=== PATIENT | female | born 1985 | race Caucasian/White ===

== ENCOUNTER 2016-10-19 13:02 | Emergency (ER) | payer MEDICAID, MEDICARE ==
[2016-10-19 13:22] VITALS: BP 105/73
--- NOTE | 2016-10-19 13:33 | UC ---
Dental HPI - HPI Summary HPI Summary: complaint of dental pain that started 2-3 days ago bottom lower right jaw- getting more swollen constanat c=aching pain worse with chewing and cold water bad taste in her mouth sometimes took some ibuprofen without relief today denies fever or chills, headaches waiting for approval to have dentral procedure- [facility] - History of Current Complaint Chief Complaint: UCDentalProblem Stated Complaint: TOOTH COMPLAINT Time Seen by Provider: 10/19/16 13:27 Hx Obtained From: Patient Hx Last Menstrual Period: 09/21/16 Aggravating: Cold, Chewing Alleviating: Nothing Related History: Previous Dental Care on Same Tooth - Allergies/Home Medications Allergies/Adverse Reactions: Allergies Allergy/AdvReac Type Severity Reaction Status Date / Time Hydrocodone [From Vicodin] Allergy Intermediate Shortness Verified 10/19/16 13: 12 of Breath Penicillins Allergy Intermediate Rash Verified 10/19/16 13:12 Amoxicillin Allergy Rash Verified 10/19/16 13:12 Home Medications: Home Medications Gabapentin CAP(*) [Neurontin 100 mg CAP(*)] 100 mg PO TID 10/19/16 [History Confirmed 10/19/16] Ibuprofen [Ibuprofen 200 MG] 1,000 mg PO PRN 10/19/16 [History] Venlafaxine ER (NF) [Effexor ER (NF)] 75 mg PO DAILY 10/19/16 [History Confirmed 10/19/16] PMH/Surg Hx/FS Hx/Imm Hx Previously Healthy: Yes Endocrine History Of: Denies: Diabetes, Thyroid Disease Cardiovascular History Of: Denies: Cardiac Disorders, Hypertension, Pacemaker/ICD Respiratory History Of: Denies: COPD, Asthma GI/ History Of: Denies: Gastroesophageal Reflux, Ulcer, Renal Disease Neurological History Of: Denies: CVA, Dementia, Seizures Psychological History Of: Reports: Anxiety Other History Of: Negative For: Anticoagulant Therapy - Surgical History Surgical History: Yes Surgery Procedure, Year, and Place: LAMINECTOMY L5-S1 - 2009 (PREV 2 OTHER LAMINECTOMIES TO SAME AREA). TUBAL LIGATON - 2007. LEFT EARDRUM - Family History Known Family History: Negative: Cardiac Disease, Hypertension, Diabetes - Social History Occupation: Unemployed Lives: With Family Alcohol Use: None Substance Use Type: None Smoking Status (MU): Current Every Day Smoker Type: Cigarettes Amount Used/How Often: 1/2 pack per day Have You Smoked in the Last Year: Yes Household Exposure Type: Cigarettes - Immunization History Most Recent Influenza Vaccination: not utd Most Recent Tetanus Shot: 04/18/16 Most Recent Pneumonia Vaccination: none Review of Systems Constitutional: Negative Skin: Negative Eyes: Negative ENT: Dental Pain Respiratory: Negative Cardiovascular: Negative Gastrointestinal: Negative Genitourinary: Negative Motor: Negative Neurovascular: Negative Musculoskeletal: Negative Neurological: Negative Psychological: Negative All Other Systems Reviewed And Are Negative: Yes Physical Exam Triage Information Reviewed: Yes Appearance: No Pain Distress, Well-Nourished, Obese Vital Signs: Initial Vital Signs Temp 98.5 F 10/19/16 13:16 Pulse 103 10/19/16 13:16 Resp 16 10/19/16 13:16 BP 105/73 10/19/16 13:16 Pulse Ox 97 10/19/16 13:16 Vital Signs Reviewed: Yes Eyes: Positive: Conjunctiva Clear ENT: Positive: Pharynx normal, TMs normal Dental: Positive: Gross Decay/Caries @ - throughout remaining teeth, Abscess @ - 27 Neck: Positive: No Lymphadenopathy Respiratory: Positive: Lungs clear, Normal breath sounds, No respiratory distress Cardiovascular: Positive: No Murmur, Pulses Normal, Tachycardia Abdomen Description: Positive: Nontender, Soft Bowel Sounds: Positive: Present Musculoskeletal: Positive: No Edema Neurological: Positive: Alert Psychological Exam: Normal Skin Exam: Normal Dental Complaint Course/Dx - Course Course Of Treatment: exam completed. will treat dental abscess with clindamycin and percocet for several days until infection is controlled than change to ibuprofen or tylenol. ISTOP report shows tramadol use through PCP in 08/24/17 - Differential Dx/Diagnosis Differential Diagnosis/Dx: Dental Abscess, Dental Caries Provider Diagnoses: dental caries, dental abscess Discharge - Discharge Plan Condition: Stable Disposition: HOME Prescriptions: Clindamycin Cap(NF) [Cleocin 300 mg Cap(NF)] 300 mg PO TID #30 cap oxyCODONE/Acetamin 5/325 MG* [Percocet 5/325 TAB*] 1 tab PO Q4H PRN #12 tab MDD 6 PRN Reason: Pain (Dental) Patient Education Materials: Dental Abscess (ED) Referrals: Tao Green NP [Primary Care Provider] - Additional Instructions: Start antibiotic as directed Increase fluids and rest Take percocet for pain and then when finished change to ibuprofen or acetaminophen Keep appt with [facility]. Please review your discharge instructions. If your symptoms do not improve please call your primary care provider or return to urgent care
== END 2016-10-19 13:53 | disposition home or self-care (01) ==
LOC: UCEAST 13:02
DX: K04.7 Periapical abscess without sinus (principal); K02.9 Dental caries, unspecified; Z88.5 Allergy status to narcotic agent; Z88.0 Allergy status to penicillin; F17.210 Nicotine dependence, cigarettes, uncomplicated
CPT/HCPCS: 99212; G0463

== ENCOUNTER 2016-11-30 15:49 | Emergency (ER) | payer MEDICARE ==
[2016-11-30] MEDS ORDERED: Dexamethasone IV* 4 MG/ML 5 ML VIAL (20 MG) IVPB ONE (16:14)
[2016-11-30] MEDS ORDERED: oxyCODONE/Acetamin 5/325 MG* TAB PO ONE (16:14)
[2016-11-30] MEDS ORDERED: Orphenadrine Citrate IV* 30 MG/ML 2 ML VIAL IV ONE (16:14)
--- NOTE | 2016-11-30 16:32 | ED ---
Back Pain - HPI Summary HPI Summary: 31F presents with back pain since Saturday. She has a history of L5-S1 laminectomy in [place] 5 years ago. She states the pain is the same pain she had before her surgery. She states she has pain and tingling doing down her right leg to her foot. She denies any loss of bowel or bladder or saddle paresthesia. She denies any fever. She denies any trauma to the area. - History of Current Complaint Chief Complaint: EDBackInjuryPain Stated Complaint: LOWER BACK AND LEG PAIN Time Seen by Provider: 11/30/16 16:06 Hx Last Menstrual Period: 09/21/16 Pain Intensity: 8 - Allergies/Home Medications Allergies/Adverse Reactions: Allergies Allergy/AdvReac Type Severity Reaction Status Date / Time Hydrocodone [From Vicodin] Allergy Intermediate Shortness Verified 11/30/16 15: 55 of Breath Penicillins Allergy Intermediate Rash Verified 11/30/16 15:55 Amoxicillin Allergy Rash Verified 11/30/16 15:55 PMH/Surg Hx/FS Hx/Imm Hx Endocrine/Hematology History: Denies: Hx Anticoagulant Therapy, Hx Diabetes, Hx Thyroid Disease Cardiovascular History: Denies: Hx Hypertension, Hx Pacemaker/ICD Respiratory History: Reports: Other Respiratory Problems/Disorders - rhinitis Denies: Hx Asthma, Hx Chronic Obstructive Pulmonary Disease (COPD) GI History: Denies: Hx Ulcer History: Denies: Hx Dialysis, Hx Renal Disease Musculoskeletal History: Reports: Hx Back Problems Denies: Hx Rheumatoid Arthritis, Hx Osteoporosis Sensory History: Denies: Hx Hearing Aid Neurological History: Denies: Hx Dementia, Hx Seizures Psychiatric History: Reports: Hx Anxiety Denies: Hx Panic Disorder, Hx Substance Abuse - Surgical History Surgery Procedure, Year, and Place: LAMINECTOMY L5-S1 - 2009 (PREV 2 OTHER LAMINECTOMIES TO SAME AREA). TUBAL LIGATON - 2007. LEFT EARDRUM Infectious Disease History: No Infectious Disease History: Denies: Hx Clostridium Difficile, Hx Hepatitis, Hx Human Immunodeficiency Virus (HIV), Hx of Known/Suspected MRSA, Hx Shingles, Hx Tuberculosis, Hx Known/ Suspected VRE, Hx Known/Suspected VRSA, History Other Infectious Disease, Traveled Outside the [place] in Last 30 Days - Family History Known Family History: Negative: Cardiac Disease, Hypertension, Diabetes - Social History Alcohol Use: None Substance Use Type: Reports: None Hx Tobacco Use: Yes Smoking Status (MU): Current Every Day Smoker Type: Cigarettes Amount Used/How Often: 1/2 pack per day Have You Smoked in the Last Year: Yes Review of Systems Negative: Fever Negative: Chest Pain Negative: Shortness Of Breath Positive: Myalgia - back pain All Other Systems Reviewed And Are Negative: Yes Physical Exam Triage Information Reviewed: Yes Vital Signs On Initial Exam: Initial Vitals Temp Pulse Resp BP Pulse Ox 98.1 F 126 18 115/78 100 11/30/16 15:56 11/30/16 15:56 11/30/16 15:56 11/30/16 15:56 11/30/16 15:56 Vital Signs Reviewed: Yes Appearance: Positive: Well-Appearing Skin: Positive: Warm, Dry Head/Face: Positive: Normal Head/Face Inspection Eyes: Positive: Normal, Conjunctiva Clear ENT: Positive: Normal ENT inspection, Pharynx normal, TMs normal Respiratory/Lung Sounds: Positive: Clear to Auscultation, Breath Sounds Present Cardiovascular: Positive: Normal, RRR Musculoskeletal: Positive: Limited @ - back due to pain, Other - pos SRL right side, tenderness on either side of lower back with tenderness greatest on right side Diagnostics - Vital Signs Vital Signs Temp Pulse Resp BP Pulse Ox 11/30/16 15:56 98.1 F 126 18 115/78 100 - Laboratory Lab Statement: Any lab studies that have been ordered have been reviewed, and results considered in the medical decision making process. - CT back CT Interpretation: Positive (See Comments) - IMPRESSION: 1. Negative for fracture 2. No gross change in the disc extrusion with resulting moderate acquired central canal stenosis at L4-L5 or mild to moderate bilateral L4-L5 foraminal stenosis. 3. Post anterior column L5-S1 fusion. Moderately severe RIGHT and moderate LEFT L5-S1 foraminal stenosis with suggestion of worsening on the RIGHT compared with the January 19, 2015 MRI. 4. Partially visualized uterus appears enlarged. Correlate with clinical assessment. CT Interpretation Completed By: Radiologist Re-Evaluation - Re-Evaluation First Eval Re-Evaluation Time: 17:08 Change: Unchanged Comment: still in pain, will give morphine Second Eval Re-Evaluation Time: 17:48 Change: Improved Comment: feeling better, wants to go home Back Pain Course/Dx - Course Course Of Treatment: 31F presents with back pain since danielle. denies any trauma. states this pain is the same pain had before had surgery 5 years ago and has L5-S1 removed. states pain travels down right leg and pain is greatest on right hand side. states that was using heat packs and that it seemed to help a little but the pain is becoming unmanagable at home. on exam tenderness to right side of back and pos SLR on right side. CT shows worsening foraminal stenosis on right which may be causing pain. able to achieve pain control with decadron, noriflex, percocet, and morphine. will have continue ibuprofen, robaxin, prednisone at home and gave percocet for break through pain. told to increase fiber so constipation does not put pressure on area. told to follow up with primary to potential do PT, told to potential follow up with neurosurgery. patient understands and agrees with plan - Diagnoses Differential Diagnosis/HQI/PQRI: Positive: Herniated Disc, Strain, Sprain Provider Diagnoses: Back pain Discharge - Discharge Plan Condition: Good Disposition: HOME Prescriptions: Methocarbamol TAB* [Robaxin TAB*] 750 mg PO TID PRN #9 tab PRN Reason: Pain Methylprednisolone [Medrol Dosepak 4 MG*] 4 mg PO .SEE JUAN M INSTRUCTION #1 packet oxyCODONE/Acetamin 5/325 MG* [Percocet 5/325 TAB*] 1 tab PO Q6H PRN #16 tab MDD 4 PRN Reason: Pain Patient Education Materials: Back Pain (ED) Referrals: Levy Madden MD [Medical Doctor] - Tao Green NP [Primary Care Provider] - Additional Instructions: Follow directions on package for Medrol pack Take muscle relaxers three times a day for 3 days Use ibuprofen or Tylenol for pain every 6 hours, use narcotic for break through pain Increase fiber, use OTC laxatives such as miralax ice/heat area, move as much as possible Follow up with primary within 5 days Follow up with neurosurgery Return to ED if unable to ambulate or develop any new or worsening symptoms
--- NOTE | 2016-11-30 16:57 | RAD ---
Indication: Pain radiating to the RIGHT leg. Post L5-S1 laminectomy in 2010 and more remote back surgery. Comparison: January 19, 2015 MRI. Technique: Noncontrast CT lumbar sacral spine. Report: The partially visualized uterus appears enlarged. Postsurgical change of L5-S1 anterior hardware and bone graft fusion and bilateral decompressive laminectomy. No suggestion of loosening of the L5-S1 anterior fusion hardware. Normal vertebral alignment. Negative for vertebral body fracture or spondylolysis. At L4-L5 there is mild to moderate disc space narrowing. Broad dorsal disc extrusion with mild caudal extension most prominent in the posterior central region is grossly unchanged from the 2015 MRI. Resulting moderate acquired central canal stenosis. Degenerative spondylosis and facet ligamentous hypertrophic arthropathy results in mild to moderate bilateral foraminal stenosis without significant change. At L5-S1 there is no significant acquired central canal or lateral recess stenosis. Vertebral endplate osteophytosis and posterior element hypertrophic arthropathy results in moderately severe RIGHT and moderate LEFT foraminal stenosis with suggestion of worsening on the RIGHT compared with the prior exam. IMPRESSION: 1. Negative for fracture 2. No gross change in the disc extrusion with resulting moderate acquired central canal stenosis at L4-L5 or mild to moderate bilateral L4-L5 foraminal stenosis. 3. Post anterior column L5-S1 fusion. Moderately severe RIGHT and moderate LEFT L5-S1 foraminal stenosis with suggestion of worsening on the RIGHT compared with the January 19, 2015 MRI. 4. Partially visualized uterus appears enlarged. Correlate with clinical assessment.
[2016-11-30] MEDS ORDERED: Morphine INJ* 4 MG/ML 1 ML SYRINGE IV ONE (17:08)
[2016-11-30] MEDS ORDERED: Ondansetron INJ* 2 MG/ML VIAL IV ONE (17:08)
[2016-11-30 17:45] VITALS: BP 98/61
== END 2016-11-30 17:54 | disposition home or self-care (01) ==
LOC: ED 15:49
DX: M54.9 Dorsalgia, unspecified (principal); F17.210 Nicotine dependence, cigarettes, uncomplicated
CPT/HCPCS: 72131; 99283; A9270-GY; J2270; J2360; J2405

== ENCOUNTER 2017-01-20 22:47 | Emergency (ER) | payer MEDICARE, MEDICAID ==
--- NOTE | 2017-01-21 00:39 | ED ---
- HPI Summary HPI Summary: 31 female presents with complaints of lower abdominal pressure and heavy vaginal bleeding that began today 01/20/17. Patient states she is approximately 19 weeks . She has been experiencing vaginal bleeding for the past month however it has not been this heavy. Has spoke with Dr Hansen, a month ago while in ED, who told her to return if bleeding became worse. Also has appointment in [place] for possible terminating this Saturday due to the complications she has been having. States she passed two large size clots that she brought into ED with her. Wanted to be seen to make sure she wasn't losing too much blood. Admits to some lower abdominal discomfort she describes to be like tadeo gold except less frequent. Has taken ibuprofen for the pain. Patient also takes oxycodone daily for chronic back pain and also took that today. No other significant PMHx. Denies urinary and genitalia symptoms. Denies fever/chills, nausea, vomiting and constipation. HX of ectopic . - History of Current Complaint Chief Complaint: EDVaginalBleeding Stated Complaint: VAG BLEED/19 WKS Time Seen by Provider: 01/21/17 00:06 Hx Obtained From: Patient Chief Complaint: Concern for Demise, Vaginal Bleeding Onset/Duration: Started Weeks Ago - has been ongoing for past month, increased tonight, Worse Since Timing: Constant Severity: Moderate Current Severity: Mild Pain Intensity: 6 Location of Pain: Suprapubic Character: Cramping, Dull, Other: - pressure Aggravating Factors: Nothing Alleviating Factors: Nothing Associated Signs and Symptoms: Positive: Back Pain, Vaginal Bleeding or Discharge - Assessment Hx Now: Yes Hx : 4 Hx Para: 2 SAB: 1 IEA: 0 History of Ectopic : Yes Vaginal Bleeding Amount: Large - has since slowed down - Risk Factors Ectopic Risk Factor: Prior Ectopic - per patient, Tubal Ligation - Additional Pertinent History Maternal Blood Type and Rh: O Positive - Allergies/Home Medications Allergies/Adverse Reactions: Allergies Allergy/AdvReac Type Severity Reaction Status Date / Time Hydrocodone [From Vicodin] Allergy Intermediate Shortness Verified 01/21/17 00: 03 of Breath Penicillins Allergy Intermediate Rash Verified 01/21/17 00:03 Amoxicillin Allergy Rash Verified 01/21/17 00:03 PMH/Surg Hx/FS Hx/Imm Hx Endocrine/Hematology History: Denies: Hx Anticoagulant Therapy, Hx Diabetes, Hx Thyroid Disease Cardiovascular History: Denies: Hx Hypertension, Hx Pacemaker/ICD Respiratory History: Reports: Other Respiratory Problems/Disorders - rhinitis Denies: Hx Asthma, Hx Chronic Obstructive Pulmonary Disease (COPD) GI History: Denies: Hx Ulcer History: Denies: Hx Dialysis, Hx Renal Disease Musculoskeletal History: Reports: Hx Back Problems Denies: Hx Rheumatoid Arthritis, Hx Osteoporosis Sensory History: Denies: Hx Hearing Aid Neurological History: Denies: Hx Dementia, Hx Seizures Psychiatric History: Reports: Hx Anxiety Denies: Hx Panic Disorder, Hx Substance Abuse - Surgical History Surgery Procedure, Year, and Place: LAMINECTOMY L5-S1 - 2009 (PREV 2 OTHER LAMINECTOMIES TO SAME AREA). TUBAL LIGATON - 2007. LEFT EARDRUM - Immunization History Immunizations Up to Date: Yes Infectious Disease History: No Infectious Disease History: Denies: Hx Clostridium Difficile, Hx Hepatitis, Hx Human Immunodeficiency Virus (HIV), Hx of Known/Suspected MRSA, Hx Shingles, Hx Tuberculosis, Hx Known/ Suspected VRE, Hx Known/Suspected VRSA, History Other Infectious Disease, Traveled Outside the [place] in Last 30 Days - Family History Known Family History: Negative: Cardiac Disease, Hypertension, Diabetes - Social History Alcohol Use: None Substance Use Type: Reports: None Hx Tobacco Use: Yes Smoking Status (MU): Current Every Day Smoker Type: Cigarettes Amount Used/How Often: 1/2 pack per day Have You Smoked in the Last Year: Yes Review of Systems Constitutional: Negative Cardiovascular: Negative Respiratory: Negative Positive: Abdominal Pain Positive: other - vaginal bleeding Musculoskeletal: Negative Skin: Negative Neurological: Negative All Other Systems Reviewed And Are Negative: Yes Physical Exam - Physical Exam Triage Information Reviewed: Yes Vital Signs On Initial Exam: Temp: 97.9 HR: 112 BP: 117/76 Resp:20 tachycardia noted Vital Signs Reviewed: Yes Appearance: Positive: Well-Appearing, No Pain Distress, Well-Nourished Skin: Positive: Warm, Skin Color Reflects Adequate Perfusion, Dry, Pale. Negative: Cyanosis @ Head/Face: Positive: Normal Head/Face Inspection Eyes: Positive: Normal, Conjunctiva Clear ENT: Positive: Normal ENT inspection, Hearing grossly normal Neck: Positive: Supple, Nontender, No Lymphadenopathy Respiratory/Lung Sounds: Positive: Clear to Auscultation, Breath Sounds Present Cardiovascular: Positive: Normal, RRR, Pulses are Symmetrical in both Upper and Lower Extremities Abdomen Description: Positive: No Organomegaly, Soft, Other: - minimal tenderness on palpation of suprapubic abdomen. Negative: Bruit, CVA Tenderness (R), CVA Tenderness (L), Distended, Guarding, Peritoneal Signs, Pulsatile Mass Bowel Sounds: Positive: Present Musculoskeletal: Positive: Normal, Strength/ROM Intact Neurological: Positive: Normal, Sensory/Motor Intact, Alert, Oriented to Person Place, Time Psychiatric: Positive: Normal Diagnostics - Vital Signs Vital Signs Temp Pulse Resp BP Pulse Ox 01/21/17 00:02 99.7 F 106 16 111/67 96 01/20/17 22:48 97.9 F 112 20 117/76 - Laboratory Result Diagrams: 01/21/17 00:58 01/21/17 00:58 Lab Statement: Any lab studies that have been ordered have been reviewed, and results considered in the medical decision making process. Re-Evaluation - Re-Evaluation First Eval Re-Evaluation Time: 01:30 Change: Improved Comment: bleeding has slowed, pain has decreased, discussed lab results, UTI and current plan of action. patient agrees. Course/Dx - Course Course Of Treatment: heart tones obtained- 160bpm. Labs, UA and HCG obtained. Patient given tylenol for pain and discomfort. WBC elevated, RBC decreased however compared to previous visits and all in similar range. No concern for sepsis at this time. Patient also states she has a dental abscess being treated . Patient's urine also showed UTI. Will be treated. H&H not of concern at this time. Patient instructed to eat high iron foods. Close follow up with OBGYN. Aware of worsening signs and symptoms. Viable at this time. - Differential Diagnosis/HQI/PQRI: Spontaneous , Threatened , Early , Premature Rupture of Membranes, Pre-term Labor, Vaginal Bleeding - Diagnoses Provider Diagnoses: Vaginal bleeding before 22 weeks gestation, UTI (urinary tract infection) - Provider Notifications Discussed Care Of Patient With: Dr Liz Discharge - Discharge Plan Condition: Stable Disposition: HOME Prescriptions: Nitrofurantoin Macrocrystals* [Macrodantin*] 100 mg PO BID #13 cap Patient Education Materials: Urinary Tract Infection in Women (ED) Referrals: Non Staff,Doctor [Primary Care Provider] - Bc Hansen MD [Medical Doctor] - Additional Instructions: Take prescribed medication as directed until entire dose is finished, even if symptoms improve for UTI. Make an appointment with Dr Hansen's office to be seen tomorrow for close follow up. Warm compresses on lower abdomen may help with discomfort. If you develop worsening symptoms of increased bleeding, increased pain, fever/ chills, dizziness and lightheadedness please return to ED. Tylenol for pain and discomfort. Follow up with PCP.
[2017-01-21] MEDS ORDERED: Acetaminophen TAB* 325 MG PO ONE (00:41)
[2017-01-21 01:14] LABS: Urine Bacteria 1+ (Absent); Urine Bilirubin Negative (Negative); Urine Glucose Negative (Negative); Urine Nitrite Negative (Negative)
[2017-01-21 01:21] LABS: Albumin 3.4 g/dL (3.2-5.2); BUN/Creatinine Ratio 17.5 (8-20); Calcium 8.7 mg/dL (8.6-10.3); EGFR African American 236.4 (>60); EGFR Non-African American 183.8 (>60); Globulin 2.8 g/dL (2-4); Potassium 3.4 mmol/L (3.5-5.0); Total Bilirubin 0.3 mg/dL (0.2-1.0); Total Protein 6.2 g/dL (6.4-8.9)
[2017-01-21 01:36] LABS: Hematocrit 32 % (35-47); Hemoglobin 10.5 g/dl (12.0-16.0); Mean Corpuscular HGB Conc 33 g/dl (31-36); Mean Corpuscular Hemoglobin 29 pg (27-31); Mean Corpuscular Volume 87 fL (80-97); Mean Platelet Volume 9 um3 (7.4-10.4); Red Blood Count 3.62 10^6/ul (4.0-5.4); Red Cell Distribution Width 14 % (10.5-15); White Blood Count 20.5 10^3/ul (3.5-10.8)
[2017-01-21] MEDS ORDERED: Nitrofurantoin Macrocrystals* 100 MG CAP PO ONE (01:58)
[2017-01-21 02:16] VITALS: BP 100/67
== END 2017-01-21 02:15 | disposition home or self-care (01) ==
LOC: ED 22:47
DX: O46.92 Antepartum hemorrhage, unspecified, second trimester (principal); R10.30 Lower abdominal pain, unspecified; Z3A.22 22 weeks gestation of pregnancy; N39.0 Urinary tract infection, site not specified; M54.9 Dorsalgia, unspecified
CPT/HCPCS: 36415; 80053; 81003; 81015; 84702; 85025; 87086; 99282; A9270-GY

== ENCOUNTER 2017-03-24 09:25 | Emergency (ER) | payer MEDICARE, MEDICAID ==
[2017-03-24 10:52] VITALS: BP 101/69
--- NOTE | 2017-03-24 11:58 | UC ---
UC Dental HPI - History of Current Complaint Chief Complaint: UCDentalProblem Stated Complaint: DENTAL COMPLAINT Time Seen by Provider: 03/24/17 11:30 Hx Obtained From: Patient Hx Last Menstrual Period: 03/09/17 ?: No Onset/Duration: Gradual Onset - states had 12 teeth pulled 4 days a go and was put on clindamycin. she was feeling well for first 2 days but now thinks the clindamycin is not working, has bad taste in her mouth. - Allergies/Home Medications Allergies/Adverse Reactions: Allergies Allergy/AdvReac Type Severity Reaction Status Date / Time Hydrocodone [From Vicodin] Allergy Intermediate Shortness Verified 01/21/17 00: 03 of Breath Penicillins Allergy Intermediate Rash Verified 01/21/17 00:03 Amoxicillin Allergy Rash Verified 01/21/17 00:03 PMH/Surg Hx/FS Hx/Imm Hx Previously Healthy: Yes Psychological History: Depression Other History Of: Negative For: Anticoagulant Therapy - Surgical History Surgical History: Yes Surgery Procedure, Year, and Place: LAMINECTOMY L5-S1 - 2009 (PREV 2 OTHER LAMINECTOMIES TO SAME AREA). TUBAL LIGATON - 2007. LEFT EARDRUM - Family History Known Family History: Negative: Cardiac Disease, Hypertension, Diabetes - Social History Occupation: Unemployed Lives: With Family Alcohol Use: None Substance Use Type: None Smoking Status (MU): Light Every Day Tobacco Smoker Type: Cigarettes Amount Used/How Often: 1/2 pack per day Have You Smoked in the Last Year: Yes Household Exposure Type: Cigarettes - Immunization History Most Recent Influenza Vaccination: not utd Most Recent Tetanus Shot: 04/18/16 Most Recent Pneumonia Vaccination: none Review of Systems Constitutional: Negative ENT: Dental Pain Respiratory: Negative Cardiovascular: Negative All Other Systems Reviewed And Are Negative: Yes Physical Exam Triage Information Reviewed: Yes Appearance: Well-Appearing, No Pain Distress, Well-Nourished Vital Signs: Initial Vital Signs Temp 99.0 F 03/24/17 10:49 Pulse 91 03/24/17 10:49 Resp 18 03/24/17 10:49 BP 101/69 03/24/17 10:49 Pulse Ox 100 03/24/17 10:49 Vital Signs Reviewed: Yes ENT: Positive: Other: - multiple tooth extraction sites, no clear evidence infection, white granulation tissue eveident, no d/c, redness or facial swelling Neck: Positive: No Lymphadenopathy Respiratory Exam: Normal Cardiovascular Exam: Normal Psychological Exam: Normal Skin Exam: Normal Dental Complaint Course/Dx - Course Course Of Treatment: iStop Reference # [id number] - Differential Dx/Diagnosis Differential Diagnosis/Dx: Dental Abscess, Post Extraction Pain Provider Diagnoses: post extraction pain Discharge - Discharge Plan Condition: Good Disposition: HOME Prescriptions: Cephalexin CAP* [Keflex 500 CAP*] 500 mg PO QID #40 cap Patient Education Materials: Tooth Extraction (ED) Additional Instructions: stop clindamycin and start cephalexin as prescribed continue oxycodone from home as directed fpr pain Follow-up with your dentist as planned
== END 2017-03-24 12:38 | disposition home or self-care (01) ==
LOC: UCEAST 09:25
DX: G89.18 Other acute postprocedural pain (principal); K08.89 Other specified disorders of teeth and supporting structures; Z72.0 Tobacco use
CPT/HCPCS: 99212; G0463

== ENCOUNTER 2017-04-21 14:02 | Emergency (ER) | payer MEDICARE, MEDICAID ==
[2017-04-21 14:09] VITALS: BP 104/72
--- NOTE | 2017-04-21 14:23 | UC ---
Elbow Pain - HPI Summary HPI Summary: Fell on right elbow about one hour ago - History of Current Complaint Chief Complaint: UCUpperExtremity Stated Complaint: ELBOW INJURY Time Seen by Provider: 04/21/17 14:17 Hx Obtained From: Patient Hx Last Menstrual Period: 04/21/17 ?: No Mechanism of Injury: fall Onset/Duration: Minutes, Traumatic Severity Initially: Moderate Severity Currently: Moderate Pain Intensity: 6 Pain Scale Used: 0-10 Numeric Location Of Pain: Is Discrete @ - right elbow Character: Aching Aggravating Factor(s): Movement Alleviating Factor(s): Rest, Ice - Allergies/Home Medications Allergies/Adverse Reactions: Allergies Allergy/AdvReac Type Severity Reaction Status Date / Time Hydrocodone [From Vicodin] Allergy Intermediate Shortness Verified 01/21/17 00: 03 of Breath Penicillins Allergy Intermediate Rash Verified 01/21/17 00:03 Amoxicillin Allergy Rash Verified 01/21/17 00:03 PMH/Surg Hx/FS Hx/Imm Hx Previously Healthy: No - chronic pain Other History Of: Negative For: Anticoagulant Therapy - Surgical History Surgical History: Yes Surgery Procedure, Year, and Place: LAMINECTOMY L5-S1 - 2009 (PREV 2 OTHER LAMINECTOMIES TO SAME AREA). TUBAL LIGATON - 2007. LEFT EARDRUM - Family History Known Family History: Negative: Cardiac Disease, Hypertension, Diabetes - Social History Occupation: Disabled Lives: With Family Alcohol Use: None Substance Use Type: None Smoking Status (MU): Light Every Day Tobacco Smoker Type: Cigarettes Amount Used/How Often: 1/2 pack per day Have You Smoked in the Last Year: Yes Household Exposure Type: Cigarettes Cessation Counseling: Patient Advised to Stop - Immunization History Most Recent Influenza Vaccination: not utd Most Recent Tetanus Shot: 04/18/16 Most Recent Pneumonia Vaccination: none Review of Systems Constitutional: Negative Skin: Negative Eyes: Negative ENT: Negative Respiratory: Negative Cardiovascular: Negative Gastrointestinal: Negative Genitourinary: Negative Motor: Negative Neurovascular: Negative Musculoskeletal: Arthralgia - right elbow Neurological: Negative Psychological: Negative All Other Systems Reviewed And Are Negative: Yes Physical Exam Triage Information Reviewed: Yes Appearance: Well-Appearing, No Pain Distress, Well-Nourished Vital Signs: Initial Vital Signs Temp 97.9 F 04/21/17 14:07 Pulse 108 04/21/17 14:07 Resp 18 04/21/17 14:07 BP 104/72 04/21/17 14:07 Pulse Ox 100 04/21/17 14:07 Vital Signs Reviewed: Yes Eye Exam: Normal Eyes: Positive: Conjunctiva Clear ENT Exam: Normal ENT: Positive: Normal ENT inspection, Hearing grossly normal. Negative: Nasal congestion, Nasal drainage, Trismus, Muffled/hoarse voice Dental Exam: Normal Neck exam: Normal Neck: Positive: Supple, Nontender Respiratory Exam: Normal Respiratory: Positive: Chest non-tender, No respiratory distress, No accessory muscle use Cardiovascular Exam: Normal Cardiovascular: Positive: RRR, Pulses Normal, Brisk Capillary Refill Musculoskeletal Exam: Normal Musculoskeletal: Positive: No Edema, Strength Limited @, ROM Limited @ - right elbow Neurological Exam: Normal Neurological: Positive: Alert, Muscle Tone Normal Psychological Exam: Normal Skin Exam: Normal Diagnostics - Radiology No standard instances Xray Interpretation: No Acute Changes Radiology Interpretation Completed By: Radiologist Elbow Pain Course/Dx - Course Course Of Treatment: rice, sling prn for 1-2 days, ibuprofen follow with pcp - Differential Dx/Diagnosis Differential Diagnosis/HQI/PQRI: Contusion, Fracture (Closed), Sprain, Strain Provider Diagnoses: Contusion right elbow Discharge - Discharge Plan Condition: Stable Disposition: HOME Patient Education Materials: Contusion in Adults (ED), Ibuprofen (By mouth), Swollen Joint (ED) Referrals: Grady Sierra MD [Medical Doctor] - 5 Days
--- NOTE | 2017-04-21 14:53 | RAD ---
Indication: Right elbow injury. 4 views of the right elbow demonstrates no fracture. No other bone or joint abnormality is identified. IMPRESSION: No fracture right elbow is noted.
== END 2017-04-21 15:03 | disposition home or self-care (01) ==
LOC: UCEAST 14:02
DX: S50.01XA Contusion of right elbow, initial encounter (principal); W19.XXXA Unspecified fall, initial encounter; Y93.9 Activity, unspecified; Y92.9 Unspecified place or not applicable; Z88.5 Allergy status to narcotic agent; Z88.0 Allergy status to penicillin; F17.210 Nicotine dependence, cigarettes, uncomplicated
CPT/HCPCS: 99213; G0463

== ENCOUNTER 2017-07-08 19:30 | Emergency (ER) | payer MEDICARE, MEDICAID ==
[2017-07-08] MEDS ORDERED: Morphine INJ* 4 MG/ML 1 ML CARPUJECT IM ONE (21:31)
--- NOTE | 2017-07-08 21:33 | ED ---
Back Pain - HPI Summary HPI Summary: 31F presents with acute on chronic back pain. The pain is in the same area as previous. no new injury. no saddle anaesthesia. no loss of bowel or bladder. took normal pain medication and not working. is looking for pain control. takes oxy for pain and naproxen and baclofen. no fever. - History of Current Complaint Chief Complaint: EDBackInjuryPain Stated Complaint: BACK PAIN Time Seen by Provider: 07/08/17 20:57 Hx Last Menstrual Period: 04/21/17 Pain Intensity: 9 - Allergies/Home Medications Allergies/Adverse Reactions: Allergies Allergy/AdvReac Type Severity Reaction Status Date / Time Hydrocodone [From Vicodin] Allergy Intermediate Shortness Verified 01/21/17 00: 03 of Breath Penicillins Allergy Intermediate Rash Verified 01/21/17 00:03 Amoxicillin Allergy Rash Verified 01/21/17 00:03 PMH/Surg Hx/FS Hx/Imm Hx Endocrine/Hematology History: Denies: Hx Anticoagulant Therapy, Hx Diabetes, Hx Thyroid Disease Cardiovascular History: Denies: Hx Hypertension, Hx Pacemaker/ICD Respiratory History: Reports: Other Respiratory Problems/Disorders - rhinitis Denies: Hx Asthma, Hx Chronic Obstructive Pulmonary Disease (COPD) GI History: Denies: Hx Ulcer History: Denies: Hx Dialysis, Hx Renal Disease Musculoskeletal History: Reports: Hx Back Problems Denies: Hx Rheumatoid Arthritis, Hx Osteoporosis Sensory History: Denies: Hx Hearing Aid Neurological History: Denies: Hx Dementia, Hx Seizures Psychiatric History: Reports: Hx Anxiety Denies: Hx Panic Disorder, Hx Substance Abuse - Surgical History Surgery Procedure, Year, and Place: LAMINECTOMY L5-S1 - 2009 (PREV 2 OTHER LAMINECTOMIES TO SAME AREA). TUBAL LIGATON - 2007. LEFT EARDRUM Infectious Disease History: No Infectious Disease History: Denies: Hx Clostridium Difficile, Hx Hepatitis, Hx Human Immunodeficiency Virus (HIV), Hx of Known/Suspected MRSA, Hx Shingles, Hx Tuberculosis, Hx Known/ Suspected VRE, Hx Known/Suspected VRSA, History Other Infectious Disease, Traveled Outside the [place] in Last 30 Days - Family History Known Family History: Negative: Cardiac Disease, Hypertension, Diabetes - Social History Alcohol Use: None Substance Use Type: Reports: None Hx Tobacco Use: Yes Smoking Status (MU): Light Every Day Tobacco Smoker Type: Cigarettes Amount Used/How Often: 1/2 pack per day Have You Smoked in the Last Year: Yes Review of Systems Negative: Fever Negative: Chest Pain Negative: Shortness Of Breath Positive: Myalgia - back pain All Other Systems Reviewed And Are Negative: Yes Physical Exam Triage Information Reviewed: Yes Vital Signs On Initial Exam: Initial Vitals Temp Pulse Resp BP Pulse Ox 98.4 F 112 20 112/79 98 07/08/17 19:40 07/08/17 19:40 07/08/17 19:40 07/08/17 19:40 07/08/17 19:40 Vital Signs Reviewed: Yes Appearance: Positive: Pain Distress Skin: Positive: Warm, Dry Head/Face: Positive: Normal Head/Face Inspection Eyes: Positive: Normal, Conjunctiva Clear Respiratory/Lung Sounds: Positive: Clear to Auscultation, Breath Sounds Present Cardiovascular: Positive: Normal, RRR Musculoskeletal: Positive: Limited @ - back, Other - tenderness across lower back, pos SLR right, good pulses Neurological: Positive: Reflexes Intact - patella Psychiatric: Positive: Normal Diagnostics - Vital Signs Vital Signs Temp Pulse Resp BP Pulse Ox 07/08/17 19:40 98.4 F 112 20 112/79 98 - Laboratory Lab Statement: Any lab studies that have been ordered have been reviewed, and results considered in the medical decision making process. Back Pain Course/Dx - Course Course Of Treatment: 31F presents with acute on chronic back pain. The pain is in the same area as previous. no new injury. no saddle anaesthesia. no loss of bowel or bladder. took normal pain medication and not working. is looking for pain control. takes oxy for pain and naproxen and baclofen. on exam in pain distress. tenderness lower back. pos SLR. discussed that is pain clinic patient so will give dose of morphine here and can inc normal pain medication but has to tell pain clinic such. patient understand and agrees with plan. - Diagnoses Differential Diagnosis/HQI/PQRI: Positive: Herniated Disc, Strain, Sprain Provider Diagnoses: Back pain Discharge - Discharge Plan Condition: Good Disposition: HOME Patient Education Materials: Back Pain (ED) Referrals: Orion Cosme MD [Primary Care Provider] - Additional Instructions: Can increase your dose of pain medication to every 4 hours or two tablets every 6 hours You need to inform the pain clinic that you are doing this follow up with pain clinic as scheduled Return to ED if develop any new or worsening symptoms *Morphine 4mg was given in ED*
[2017-07-08 21:50] VITALS: BP 113/74
== END 2017-07-08 21:49 | disposition home or self-care (01) ==
LOC: ED 19:30
DX: M54.9 Dorsalgia, unspecified (principal); G89.29 Other chronic pain; F17.210 Nicotine dependence, cigarettes, uncomplicated
CPT/HCPCS: 96372; 99281; J2270

== ENCOUNTER 2017-10-06 09:08 | Emergency (ER) | payer MEDICARE, MEDICAID ==
--- NOTE | 2017-10-06 11:10 | UC ---
Shoulder Pain HPI - HPI Summary HPI Summary: 31 y/o female presents to the urgent care c/o RT shoulder pain and lower back pain s/p falling on ice on Saturday10/02/2017. Pt reports she hs Hx of chronic back pain due to DDD on pain management. However after fall, the Gabapentin and Oxycodone are not alleviating her pain,. pain is sharp at times w/ movement of her RT shoulder, 8/10 and mild numbness of RT arm. Lower back pain is mild. Pt denies SOB, chest pain, saddle anesthesia, urinary or fecal incontinence, numbness or tinglin over the lower extremities, abdominal pain, N/V/D. 2017. - History of Current Complaint Chief Complaint: UCBackPain Stated Complaint: SHOULDER INJURY Time Seen by Provider: 10/06/17 11:03 Hx Last Menstrual Period: 09/29/17 ?: No Onset/Duration: Sudden Onset, Lasting Days - 4 days, Still Present, Worse Since - yesterday Timing: Constant Severity Initially: Moderate Severity Currently: Moderate Location Of Pain: Is Discrete @ - RT shoulder and lower back, Radiates To - RT arm Pain Intensity: 8 Pain Scale Used: 0-10 Numeric Character: Sharp, Spasmodic Aggravating Factor(s): Movement, Lifting, Abduction Alleviating Factor(s): Rest, Ice, OTC Meds Associated Signs And Symptoms: Positive: Numbness/Tingling. Negative: Swelling , Redness, Fever - Risk Factors Non-Orthopedic Risk Factor: Negative DVT Risk Factors: Negative Septic Arthritis Risk Factor: Negative - Allergies/Home Medications Allergies/Adverse Reactions: Allergies Allergy/AdvReac Type Severity Reaction Status Date / Time MS Hydrocodone [From Vicodin] Allergy Intermediate Shortness Verified 10/06/17 09:54 of Breath MS Penicillins [Penicillins] Allergy Intermediate Rash Verified 10/06/17 09:54 MS Amoxicillin [Amoxicillin] Allergy Rash Verified 10/06/17 09:54 PMH/Surg Hx/FS Hx/Imm Hx Previously Healthy: Yes Other Neurological History: DDD at L5-S1 Other History Of: Negative For: Anticoagulant Therapy - Surgical History Surgical History: Yes Surgery Procedure, Year, and Place: LAMINECTOMY L5-S1 - 2009 (PREV 2 OTHER LAMINECTOMIES TO SAME AREA). TUBAL LIGATON - 2007. LEFT EARDRUM - Family History Known Family History: Negative: Cardiac Disease, Hypertension, Diabetes - Social History Occupation: Employed Full-time Lives: With Family Alcohol Use: None Substance Use Type: None Smoking Status (MU): Former Smoker Type: Cigarettes Amount Used/How Often: 1/2 pack per day Have You Smoked in the Last Year: Yes Household Exposure Type: Cigarettes - Immunization History Most Recent Influenza Vaccination: not utd Most Recent Tetanus Shot: 04/18/16 Most Recent Pneumonia Vaccination: none Review of Systems Constitutional: Negative Skin: Negative Eyes: Negative ENT: Negative Respiratory: Negative Cardiovascular: Negative Gastrointestinal: Negative Genitourinary: Negative Motor: Negative Neurovascular: Negative Musculoskeletal: Decreased ROM - RT shoulder s/p fall, Other: - RT lower shoulder pain and lower back pain s/p fall Neurological: Negative Psychological: Negative Is Patient Immunocompromised?: No All Other Systems Reviewed And Are Negative: Yes Physical Exam Triage Information Reviewed: Yes Vital Signs: Initial Vital Signs Temp 98.9 F 10/06/17 09:56 Pulse 91 10/06/17 09:56 Resp 22 10/06/17 09:56 BP 99/70 10/06/17 09:56 Pulse Ox 98 10/06/17 09:56 - Additional Comments Vital Signs Reviewed: Yes General: well developed, well nourished female sitting in the examining table w/ o any apparent distress, Eyes: Positive: Conjunctiva Clear - PERRLA, EOMI, fundi grossly normal ENT: Positive: Normal ENT inspection, Hearing grossly normal, Pharynx normal, TMs normal Neck: Positive: Supple, Nontender, No Lymphadenopathy Respiratory: Positive: Chest non-tender, Lungs clear, Normal breath sounds, No respiratory distress Cardiovascular: Positive: RRR, No Murmur, Pulses Normal, Brisk Capillary Refill Abdomen Description: Positive: Nontender, No Organomegaly, Soft. Negative: CVA Tenderness (R), CVA Tenderness (L) Bowel Sounds: Positive: Present Musculoskeletal: Positive: Strength Intact, Other: - RT shoulder: The R shoulder is without obvious asymmetry or deformity when compared to the L shoulder. No surface trauma, ecchymosis, crepitus. No bony deformity or prominence of humeral head. No erythema, warmth. tender to palpation over the clavicle,scapula. and over Acromioclavicular joint and humeral head with no swelling, NT to palpation of the bicipital groove . NT to palpation of the muscles of the sternocleidomastoid, pectoralis, NT tenderness over biceps/ triceps, deltoid, trapezius, . Limited ROM due to pain. "empty can and drop arm test unable to perform due to pain. No axillary tenderness or lymphadenopathy. Normal sensation over the deltoid and fingers. Distal motor and neuromuscular status is intact. Back: Patient walked into the urgent care room with symmetric ambulation, No signs of limping, antalgic, able to bear weight. No signs of trauma, No masses palpated. Point tenderness at the level of L5-S1, No CVAT, no flank ecchymosis . No sacroiliac notch tenderness, No saddle anesthesia.ROM: limited due to pain , Straight Leg Raise: negative. Patellar reflexes: brisk, symmetric Muscle strength lower extremities. Dorsiflexion/ plantar flexion of ankles. Heel/ toe walk. Lower extremities: Femoral, popliteal, posterior tibial, and dorsalis pedis pulses WNL. Pt refuse rectal exam. Neurological Exam: Normal Psychological Exam: Normal Skin Exam: Normal Shoulder Course/Dx - Course Course Of Treatment: 31 y/o female presents to the urgent care c/o RT shoulder pain and lower back pain s/p falling on ice on Saturday10/02/2017. Pt reports she hs Hx of chronic back pain due to DDD on pain management. However after fall , the Gabapentin and Oxycodone are not alleviating her pain, pain is sharp at times w/ movement of her RT shoulder, 8/10 and mild numbness of RT arm. Lower back pain is mild. Pt denies SOB, chest pain, saddle anesthesia, urinary or fecal incontinence, numbness or tinglin over the lower extremities, abdominal pain, N/V/D. 10/02/2017.Hx obtained. CA performed.RT shoulder X-ray ordered, Impresssion: negative for any osseous injury. Pt's Rx Naproxen PO and Prednisone PO taper dose to alleviate symptoms. Shoulder immobilized with a shoulder sling for 2-3 days. Advised to f/u with PT referral for further evaluation and Orthopedic referral if not improvement of symptoms. - Differential Dx/Diagnosis Differential Diagnosis/HQI/PQRI: AC Separation, Arthritis, Contusion, Fracture ( Closed), Rotator Cuff Injury, Sprain, Strain, Tendonitis Provider Diagnoses: 1- RT shoulder pain s/p fall. 2- Acute lower back pain Discharge - Discharge Plan Condition: Stable Disposition: HOME Prescriptions: Naproxen [Naproxen 500 mg] 500 mg PO Q8H PRN #30 tab PRN Reason: Pain predniSONE TAB* [Deltasone TAB*] 20 mg PO DAILY #11 tab Patient Education Materials: Shoulder Sprain (ED) Referrals: Christiano Ronquillo MD [Medical Doctor] - 1 Week Orion Cosme MD [Primary Care Provider] - 1 Week Additional Instructions: 1-Please take Naproxen PO q6-8hr prn after meals as directed to alleviate pain and swelling. Take Prednisone PO as directed to decrease inflammation 2-Please apply ice, keep your shoulder immobilized with the shoulder sling for 3 -4 days and then resume movement slowly 3- Please f/u with Orthopedic DR Ronquillo or your PCP in 1 week is not improvement of symptoms for further evaluation and treatment.
--- NOTE | 2017-10-06 11:50 | RAD ---
INDICATION: Right shoulder pain COMPARISON: None TECHNIQUE: Routine frontal, Y and axial views were obtained. FINDINGS: The bony structures, joint spaces, and soft tissues are normal for age. IMPRESSION: NEGATIVE EXAMINATION.
[2017-10-06 11:58] VITALS: BP 105/63
== END 2017-10-06 12:22 | disposition home or self-care (01) ==
LOC: UCEAST 09:08
DX: M25.511 Pain in right shoulder (principal); M54.5 Low back pain; Z88.3 Allergy status to other anti-infective agents; Z88.5 Allergy status to narcotic agent; Z88.0 Allergy status to penicillin; Z87.891 Personal history of nicotine dependence; Z91.81 History of falling
CPT/HCPCS: 99213; G0463

== ENCOUNTER 2018-02-22 14:38 | Emergency (ER) | payer MEDICARE, MEDICAID ==
--- NOTE | 2018-02-22 14:50 | UC ---
Skin Complaint HPI - HPI Summary HPI Summary: 32 yo female presents with right arm bug bite 2 days ago that is now more red, enlarged, warm, and painful. Small streak running up her arm. Denies fever, chills, SOB, chest pain. - History of Current Complaint Time Seen by Provider: 02/22/18 14:50 Stated Complaint: SPIDER BITE Hx Obtained From: Patient Hx Last Menstrual Period: 09/29/17 Onset/Duration: Gradual Onset Skin Exposure Onset/Duration: Hours Ago Timing: Constant Onset Severity: Mild Current Severity: Mild Pain Intensity: 3 Pain Scale Used: 0-10 Numeric - Allergy/Home Medications Allergies/Adverse Reactions: Allergies Allergy/AdvReac Type Severity Reaction Status Date / Time acetaminophen [From Vicodin] Allergy Shortness Verified 02/22/18 15:17 of Breath amoxicillin Allergy Rash Verified 02/22/18 15:17 hydrocodone [From Vicodin] Allergy Shortness Verified 02/22/18 15:17 of Breath Penicillins Allergy Rash Verified 02/22/18 15:17 Review of Systems Constitutional: Negative Skin: Other - Redness right arm Respiratory: Negative Cardiovascular: Negative Neurovascular: Negative Musculoskeletal: Negative Neurological: Negative Psychological: Negative All Other Systems Reviewed And Are Negative: Yes PMH/Surg Hx/FS Hx/Imm Hx - Additional Past Medical History Additional PMH: Chronic pain Previously Healthy: Yes Other History Of: Negative For: Anticoagulant Therapy - Surgical History Surgical History: Yes Surgery Procedure, Year, and Place: LAMINECTOMY L5-S1 - 2009 (PREV 2 OTHER LAMINECTOMIES TO SAME AREA). TUBAL LIGATON - 2007. LEFT EARDRUM - Family History Known Family History: Negative: Cardiac Disease, Hypertension, Diabetes - Social History Occupation: Employed Full-time Lives: With Family Alcohol Use: None Substance Use Type: None Smoking Status (MU): Former Smoker Type: Cigarettes Amount Used/How Often: 1/2 pack per day Have You Smoked in the Last Year: Yes Household Exposure Type: Cigarettes - Immunization History Most Recent Influenza Vaccination: not utd Most Recent Tetanus Shot: 04/18/16 Most Recent Pneumonia Vaccination: none Physical Exam - Summary Physical Exam Summary: GENERAL: NAD. WDWN. No pain distress. SKIN: Right forearm: Radial aspect with 3mm area of erythema and surrounding mild erythema 2.0cm. Small streak extending from radial aspect to mid volar forearm. No bleeding or drainage. NECK: Supple. Nontender. No lymphadenopathy. CHEST: No accessory muscle use. Breathing comfortably and in no distress. CV: RRR. Without m/r/g. NEURO: Alert. CN II-XII grossly intact. PSYCH: Age appropriate behavior. Triage Information Reviewed: Yes Vital Signs: Vital Signs: Temp Pulse Resp BP Pulse Ox 99.1 F 122 16 128/87 99 02/22/18 14:52 02/22/18 14:52 02/22/18 14:52 02/22/18 14:52 02/22/18 14:52 Course/Dx - Course Course Of Treatment: Cellulitis due to bug bite right forearm - Diagnoses Provider Diagnoses: Cellulitis due to bug bite right forearm Discharge - Sign-Out/Discharge Documenting (check all that apply): Discharge/Admit/Transfer - Discharge Plan Condition: Stable Disposition: HOME Prescriptions: Clindamycin HCl 150 mg PO TID #21 capsule Patient Education Materials: Cellulitis (ED) Referrals: Orion Cosme MD [Primary Care Provider] - Additional Instructions: If you develop a fever, shortness of breath, chest pain, new or worsening symptoms - please call your PCP or go to the ED. - Billing Disposition and Condition Condition: STABLE Disposition: Home
[2018-02-22 14:57] VITALS: BP 128/87
== END 2018-02-22 15:34 | disposition home or self-care (01) ==
LOC: UCEAST 14:38
DX: L03.113 Cellulitis of right upper limb (principal); Z88.6 Allergy status to analgesic agent; Z88.5 Allergy status to narcotic agent; Z88.0 Allergy status to penicillin; Z87.891 Personal history of nicotine dependence
CPT/HCPCS: 99212; G0463